=== PATIENT | female | born 1935 | race Caucasian/White ===

== ENCOUNTER 2021-11-12 08:48 | Emergency (ER) | payer MEDICARE ==
[~2021-11-12] VITALS: Ht 165.1 cm; Wt 57.0 kg
[2021-11-12] VITALS (12 sets, daily range): BP systolic 114–152; BP diastolic 49–86
[2021-11-12] MEDS ORDERED: PHENAZOPYRID200 MG PO (09:25)
[2021-11-12] MEDS ORDERED: NITROFURANTN100 MG PO (09:26)
[2021-11-12 09:39] LABS: HEMATOCRIT 28.8 % (37.0-47.0); IMMATURE GRANULOCYTES 0.4 % (0.0-5.0); MEAN CELL VOLUME 94.7 fL CALC (80.0-100.0); MEAN CORPUSCULAR HGB 29.6 pG CALC (26.0-32.0); MEAN CORPUSCULAR HGB CONC 31.3 g/dL CAL (32.0-36.0); NEUT# 4.63 thou/uL (2.00-7.15); RED BLOOD COUNT 3.04 mill/uL (4.20-5.60); RED CELL DISTRI WIDTH 14.1 % (11.5-15.5)
[2021-11-12] MEDS ORDERED: POTASSIUM CHLO10 MEQ PO (09:42)
[2021-11-12] MEDS ORDERED: COZAAR25 MG PO (09:44)
[2021-11-12] MEDS ORDERED: ELIQUIS5 MG PO (09:45)
[2021-11-12] MEDS ORDERED: PROTONIX40 M2 PO (09:45)
[2021-11-12] MEDS ORDERED: CARVEDILOL6.25 MG PO (09:45)
[2021-11-12] MEDS ORDERED: LEVOTHYROXIN125 MCG PO (09:46)
[2021-11-12] MEDS ORDERED: FUROSEMIDE20 MG PO (09:46)
[2021-11-12 09:59] LABS: ALBUMIN 3.6 g/dL (3.2-5.0); ALKALINE PHOSPHATASE 110 u/l (38-126); ANION GAP 13 (6-22 (CALC)); BILIRUBIN, TOTAL 0.8 mg/dL (0.0-1.4); BUN 21 mg/dL (8-23); BUN/CREATININE RATIO 24 (12-20 (CALC)); CARBON DIOXIDE 24 mmol/l (22-30); CHLORIDE 105 mmol/l (95-108); CREATININE 0.9 mg/dL (0.5-1.0); GFR 59 ML/MIN (>=60 (CALC)); GFR FOR AFR.AMER. > 60 ML/MIN (>=60 (CALC)); POTASSIUM 4.3 mmol/l (3.5-5.1); SGOT/AST 22 u/l (9-36); SODIUM 138 mmol/l (137-146); TOTAL PROTEIN 8.5 g/dL (6.3-8.2)
[2021-11-12 11:13] LABS: URINE BILIRUBIN - DIPSTICK NEGATIVE (NEGATIVE); URINE BLOOD DIPSTICK NEGATIVE (NEGATIVE); URINE COLOR YELLOW; URINE GLUCOSE - DIPSTICK NEGATIVE (NEGATIVE); URINE KETONE NEGATIVE (NEGATIVE); URINE LEUK ESTERASE NEGATIVE (NEGATIVE); URINE PH 6.5 (4.5-8.0); URINE PROTEIN - DIPSTICK NEGATIVE (NEG-TRACE); URINE UROBILINOGEN - DIPSTICK 0.2 E.U./dL (0.2)
[2021-11-12 11:15] LABS: URINE NITRITE - DIPSTICK NEGATIVE (Negative)
== END 2021-11-12 14:57 | disposition short-term general hospital (02) ==
LOC: ED 08:48
PROVIDERS: Family Medicine
DX: I50.9 Heart failure, unspecified (principal); J18.9 Pneumonia, unspecified organism; I31.3 Pericardial effusion (noninflammatory); I48.91 Unspecified atrial fibrillation
CPT/HCPCS: Q9967

== ENCOUNTER 2022-03-12 16:17 | Observation (INO) | payer MEDICARE, OTHER ==
[~2022-03-12] VITALS: Ht 165.1 cm; Wt 54.5 kg
[~2022-03-12 16:17] MED LIST: CARVEDILOL6.25 MG PO; COZAAR25 MG PO; ELIQUIS5 MG PO; FUROSEMIDE20 MG PO; LEVOTHYROXIN125 MCG PO; NITROFURANTN100 MG PO; PHENAZOPYRID200 MG PO; POTASSIUM CHLO10 MEQ PO; PROTONIX40 M2 PO
--- NOTE | 2022-03-12 16:40 | NUR ---
PT AMB TO ROOM WITH STEADY GAIT
[2022-03-12 17:37] LABS: NEUT# 11.66 thou/uL (2.00-7.15); RED BLOOD COUNT 3.63 mill/uL (4.20-5.60); RED CELL DISTRI WIDTH 15.4 % (11.5-15.5)
[2022-03-12 17:38] LABS: HEMATOCRIT 35.2 % (37.0-47.0); HEMOGLOBIN 11.6 g/dl (12.0-16.0); IMMATURE GRANULOCYTES 7.3 % (0.0-5.0)
[2022-03-12 17:43] LABS: ALBUMIN 3.6 g/dL (3.2-5.0); ALKALINE PHOSPHATASE 59 u/l (38-126); BILIRUBIN, TOTAL 0.7 mg/dL (0.0-1.4); BUN 35 mg/dL (8-23); BUN/CREATININE RATIO 34 (12-20 (CALC)); CARBON DIOXIDE 22 mmol/l (22-30); CHLORIDE 106 mmol/l (95-108); GFR FOR AFR.AMER. > 60 ML/MIN (>=60 (CALC)); GFR OTHER RACES 53 ML/MIN (>=60 (CALC)); LIPASE 78 u/l (23-300); SGOT/AST 20 u/l (9-36); SODIUM 135 mmol/l (137-146); TOTAL PROTEIN 7.1 g/dL (6.3-8.2)
[2022-03-12 17:50] LABS: ANION GAP 12 (6-22 (CALC)); POTASSIUM 5.4 mmol/l (3.5-5.1)
[2022-03-12 17:51] LABS: URINE BILIRUBIN - DIPSTICK NEGATIVE (NEGATIVE); URINE BLOOD DIPSTICK NEGATIVE (NEGATIVE); URINE COLOR YELLOW; URINE GLUCOSE - DIPSTICK NEGATIVE (NEGATIVE); URINE KETONE NEGATIVE (NEGATIVE); URINE PH 6.5 (4.5-8.0); URINE PROTEIN - DIPSTICK NEGATIVE (NEG-TRACE); URINE UROBILINOGEN - DIPSTICK 0.2 E.U./dL (0.2)
[2022-03-12 17:57] LABS: URINE LEUK ESTERASE MODERATE (NEGATIVE); URINE NITRITE - DIPSTICK NEGATIVE (Negative)
--- NOTE | 2022-03-12 18:00 | NUR ---
PATIENT AWAITING ADMISSION.
[2022-03-12 18:05] LABS: URINE SQUAMOUS EPITHELIAL CELL FEW EPI/hpf (0-FEW)
[2022-03-12] MEDS ORDERED: SPIRONOLACT50 MG PO (18:11)
--- NOTE | 2022-03-12 19:26 | NUR ---
ASSUMED CARE AT SHIFT CHANGE. PT RESTING COMFORTABLY, ADJUST BEDDING, AWAITING TRASNFER TO RM [id number] UPSTAIRS. WILL CONTINUE TO MONITOR.
--- NOTE | 2022-03-12 19:40 | NUR ---
ATTEMPTED TO CALL REPORT TO FLOOR - PT NURSE IN ROOM - TOLD WILL CALL BACK.
--- NOTE | 2022-03-12 19:59 | NUR ---
PATIENT ARRIVED TO FLOOR VIA STRETCHER. PATIENT AOX3. VSS. NO SIGNS OF DISTRESS NOTED. TELEMONITORING IN PLACE; MONITORING PER ED PATIENT HAS NO COMPLAINTS AT THIS TIME. FALL PRECAUTIONS AND CALL [employer] EDUCATION PROVIDED AND INITIATED. PATIENT STATES UNDERSTANDING.
[2022-03-13 00:29] VITALS: BP 118/64
[2022-03-13 04:15] VITALS: BP 176/78
[2022-03-13 04:44] VITALS: BP 133/67
[2022-03-13 06:03] LABS: HEMATOCRIT 34.5 % (37.0-47.0); HEMOGLOBIN 11.5 g/dl (12.0-16.0); MEAN CELL VOLUME 95.6 fL CALC (80.0-100.0); MEAN CORPUSCULAR HGB 31.9 pG CALC (26.0-32.0); MEAN CORPUSCULAR HGB CONC 33.3 g/dL CAL (32.0-36.0); RED BLOOD COUNT 3.61 mill/uL (4.20-5.60); RED CELL DISTRI WIDTH 15.2 % (11.5-15.5)
[2022-03-13 06:14] LABS: BUN 34 mg/dL (8-23); BUN/CREATININE RATIO 37 (12-20 (CALC)); CALCULATED LDLCHOLESTEROL 122 mg/dL (62-129 (CALC)); CARBON DIOXIDE 25 mmol/l (22-30); CHOLESTEROL HDL RATIO 4.1 (<4.4 (CALC)); CREATININE 0.9 mg/dL (0.5-1.0); GFR FOR AFR.AMER. > 60 ML/MIN (>=60 (CALC)); GFR OTHER RACES 59 ML/MIN (>=60 (CALC)); HDL CHOLESTEROL 44 mg/dL (>=40); TOTAL CHOLESTEROL 183 mg/dl (0-199); TOTAL TRIGLYCERIDES 83 mg/dl (30-149); VLDL CHOLESTROL 17 mg/dl (0-48 (CALC))
[2022-03-13 06:24] LABS: ANION GAP 10 (6-22 (CALC)); CHLORIDE 108 mmol/l (95-108); POTASSIUM 4.8 mmol/l (3.5-5.1); SODIUM 138 mmol/l (137-146)
[2022-03-13 07:24] VITALS: BP 147/59
--- NOTE | 2022-03-13 08:00 | NUR ---
GOT REPORT FROM CORE DRIER NURSE. PATIENT ASSESSED. PATIENT IS AOX2. DISORIENTATED TO TIME AND SITUATION. NO IV ACCESS, PATIENT PULLED OUT THIS AM. NEW IV STARTED. PATIENT TOLERATED WELL. PATIENT STATES THAT SHE WANTS TO GO BACK HOME THAT IT IS MAKING HER SCARED BEING HERE THAT SHE WANT HER DAUGHTER. I ATTEMPTED TO CALL DAUGHTER FROM PATIENT'S ROOM BUT NO ANSWER. WILL ATTEMPT AGAIN. SET UP PATIENT WITH HER BREAKFAST TO EAT. PATIETN SEEMS CONTENT FOR NOW. CALL LIGHT AND BEDSIDE TABLE WITH IN REACH. ADVISED TO CALL IF SHE NEEDS ME.
[2022-03-13 12:00] VITALS: BP 137/56
--- NOTE | 2022-03-13 12:00 | NUR ---
PATIENT IN BED SPEAKING TO DAUGHTER ON THE PHONE. PATIENT ATE LUNCH. CALL DAUGHTER AND INFORMED HER THAT PATIENT WILL BE DISCHARGED TODAY. DAUGHTER WILL BE THE ONE TO PICK HER UP.
[2022-03-13] MEDS ORDERED: KEFLEX500 MG PO (13:39)
--- NOTE | 2022-03-13 15:13 | NUR ---
Patient is screened for intervention and no needs are identified at this time
--- NOTE | 2022-03-13 15:14 | NUR ---
Discharge instructions given. Patient verbalizes understanding of same. Discharged in stable condition via Wheelchair to Home with family. All belongings sent with pt.
== END 2022-03-13 15:12 | disposition home health service (06) ==
LOC: ED 16:17 → ED-I 17:50 → ED 18:32 → MS2 18:33
PROVIDERS: Nurse Practitioner; ADMIT Hospitalist; ATTEND Hospitalist
DX: R07.89 Other chest pain (principal); N39.0 Urinary tract infection, site not specified; I11.0 Hypertensive heart disease with heart failure; I50.9 Heart failure, unspecified; I48.91 Unspecified atrial fibrillation; I25.10 Atherosclerotic heart disease of native coronary artery without angina pectoris; E03.9 Hypothyroidism, unspecified; K21.9 Gastro-esophageal reflux disease without esophagitis; F03.90 Unspecified dementia, unspecified severity, without behavioral disturbance, psychotic disturbance, mood disturbance, and anxiety; Z79.01 Long term (current) use of anticoagulants; Z20.822 Contact with and (suspected) exposure to COVID-19

== ENCOUNTER 2022-10-08 17:09 | Emergency (ER) | payer MEDICARE, OTHER ==
[2022-10-08] VITALS (9 sets, daily range): BP systolic 139–172; BP diastolic 60–109
[~2022-10-08] VITALS: Ht 165.1 cm; Wt 72.6 kg
[~2022-10-08 17:09] MED LIST changes: +KEFLEX500 MG PO; +SPIRONOLACT50 MG PO
[2022-10-08] MEDS ORDERED: NAPROXEN500 MG PO (18:52)
== END 2022-10-08 20:05 | disposition home or self-care (01) ==
LOC: ED 17:09
DX: S22.32XA Fracture of one rib, left side, initial encounter for closed fracture (principal); S13.9XXA Sprain of joints and ligaments of unspecified parts of neck, initial encounter; I11.0 Hypertensive heart disease with heart failure; I50.9 Heart failure, unspecified; I48.91 Unspecified atrial fibrillation; W10.9XXA Fall (on) (from) unspecified stairs and steps, initial encounter; Z95.0 Presence of cardiac pacemaker; Z79.01 Long term (current) use of anticoagulants